=== PATIENT | male | born 1965 | race Two or more races ===

== ENCOUNTER 2021-11-06 07:44 | Inpatient (IN) | payer OTHER ==
[~2021-11-06] VITALS: Ht 167.6 cm; Wt 101.6 kg
[2021-11-06] VITALS (14 sets, daily range): BP systolic 136–180; BP diastolic 45–93
[2021-11-06] MEDS ORDERED: MIDAZOLAM HCL/PF 5 MG/5 ML VIAL. NS ONE (07:45)
--- NOTE | 2021-11-06 07:58 | EKG ---
[facility] [address] [place] [address] Test Date: 2021-11-06 Test Time: 07:41:37 Pat Name: RENNY WHITE Department: Room: Gender: M [employer]: : [id number] Requested By: SULMA BARRAGAN Order Number: [id number] Reading MD: Measurements Intervals [place] Rate: 160 P: [place]: QRS: 14 QRSD: 86 T: 71 QT: 312 QTc: 511 Interpretive Statements IRREGULAR RHYTHM, NO P-WAVE FOUND VENTRICULAR PREMATURE COMPLEX(ES) ABNORMAL ECG RI6.02 Compared to ECG 11/05/2021 20:55:52 Sinus tachycardia no longer present Atrial abnormality no longer present T-wave abnormality no longer present Possible ischemia no longer present
[2021-11-06 08:05] LABS: BASO % 1 % (0-3); EOS # 0.1 x10^3/uL (0.0-0.7); EOS % 1 % (0-3); HEMATOCRIT 42.2 % (39.0-53.0); HEMOGLOBIN 14.4 g/dL (13.0-17.5); LYMPH # 2.1 x10^3/uL (1.0-4.8); LYMPH % 25 % (24-48); MEAN CORPUSCULAR HEMOGLOBIN 28 pg (25-35); MEAN CORPUSCULAR HGB CONC 34 g/dL (31-37); MEAN CORPUSCULAR VOLUME 82 fL (79-100); MONO # 0.5 x10^3/uL (0.0-1.1); MONO % 6 % (0-9); NEUT # 5.5 x10^3/uL (1.8-7.7); NEUT % 66 % (31-73); PLATELET COUNT 290 x10^3/uL (140-400); RED BLOOD COUNT 5.14 x10^6/uL (4.30-5.70); WHITE BLOOD COUNT 8.2 x10^3/uL (4.0-11.0)
[2021-11-06 08:18] LABS: PROTHROMBIN TIME PATIENT 13.5 SEC (11.7-14.0)
[2021-11-06 08:19] LABS: CALCIUM 8.8 mg/dL (8.5-10.1); GFR 77.9; POTASSIUM 3.5 mmol/L (3.5-5.1)
[2021-11-06 08:25] LABS: ALBUMIN 3.6 g/dL (3.4-5.0); ALBUMIN/GLOBULIN RATIO 0.9 (1.0-1.7); TOTAL BILIRUBIN 0.3 mg/dL (0.2-1.0); TOTAL PROTEIN 7.4 g/dL (6.4-8.2)
--- NOTE | 2021-11-06 08:25 | RAD ---
EXAMINATION: XR CHEST 1V CLINICAL HISTORY: Chest pain. EXAM DATE/TIME: 11/06/2021 8:10 AM COMPARISON: None FINDINGS: Lines, Tubes, and Devices: None. Cardiomediastinal Silhouette: Prominent cardiac silhouette. Lungs and Pleura: Ill-defined hazy opacity in the mid to lower lung zones. Mild interstitial opacitie s and indistinct bilateral perihilar pulmonary vascular margins. No definite pleural effusion. Bones and Soft Tissues: Degenerative changes in the thoracic spine. IMPRESSION: Pulmonary edema and enlarged cardiac silhouette, correlate for volume overload. Electronically signed by: Cristiano Lora DO (11/06/2021 8:23 AM) [id number]
[2021-11-06 08:27] LABS: D-DIMER 0.85 ug/mlFEU (0.00-0.50)
--- NOTE | 2021-11-06 08:28 | PHYS DOC ---
Past Medical History Past Surgical History: No Surgical History Smoking Status: Never Smoker Alcohol Use: None General Adult EDM: Chief Complaint: CHEST PAIN HPI: HPI: Patient is a 56 year old male with a history of insulin-dependent diabetes hyperlipidemia hypertension and strong family heart disease presents to the ER with chest pain. Patient was brought in by medics found in SVT with a heart rate of 180. Patient reports crushing chest pain that started 1 hour prior to arrival while at work. 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 Patient denies smoking. States that the chest pain radiates into his neck and left shoulder. Denies any diaphoresis denies any nausea or vomiting. Denies any shortness of breath Review of Systems: Review of Systems: Constitutional: Denies fever or chills. [] Eyes: Denies change in visual acuity. [] HENT: Denies nasal congestion or sore throat. [] Respiratory: Denies cough or shortness of breath. [] Cardiovascular: Chest pain GI: Denies abdominal pain, nausea, vomiting, bloody stools or diarrhea. [] : Denies dysuria. [] Musculoskeletal: Denies back pain or joint pain. [] Integument: Denies rash. [] Neurologic: Denies headache, focal weakness or sensory changes. [] Endocrine: Denies polyuria or polydipsia. [] Lymphatic: Denies swollen glands. [] Psychiatric: Denies depression or anxiety. [] Heart Score: C/O Chest Pain: Yes HEART Score for Chest Pain: HEART Score for Chest Pain Response (Comments) Value History Moderately Suspicious 1 ECG Nonspecific Repolarizatio 1 Age >45 - < 65 1 Risk Factors >3 Risk Factors or Hx CAD 2 Troponin >3 x Normal Limit 2 Total 7 Risk Factors: Risk Factors: DM, Current or recent (<one month) smoker, HTN, HLP, family history of CAD, obesity. Risk Scores: Score 0 - 3: 2.5% MACE over next 6 weeks - Discharge Home Score 4 - 6: 20.3% MACE over next 6 weeks - Admit for Clinical Observation Score 7 - 10: 72.7% MACE over next 6 weeks - Early Invasive Strategies Current Medications: Current Medications Medications (Trade) Dose Ordered Sig/Kd Start Time Stop Time Status Last Admin Dose Admin Amiodarone HCl 450 mg/Dextrose 259 ml @ 0 mls/hr CONT PRN 11/06/21 08:30 4/22/22 08:19 UNV Digoxin (Lanoxin) 500 mcg 1X ONCE 11/06/21 08:30 11/06/21 08:31 UNV Diltiazem HCl (Cardizem Iv Push) 10 mg 1X ONCE 11/06/21 08:15 11/06/21 08:16 UNV Midazolam HCl (Versed) 2 mg 1X ONCE 11/06/21 07:45 11/06/21 07:46 UNV Physical Exam: PE: Constitutional: Well developed, well nourished, ill-appearing HENT: Normocephalic, atraumatic, bilateral external ears normal, oropharynx moist, no oral exudates, nose normal. [] Eyes: PERRLA, EOMI, conjunctiva normal, no discharge. [] Neck: Normal range of motion, no tenderness, supple, no stridor. [] Cardiovascular: Irregular and tachycardic Lungs & Thorax: Bilateral breath sounds clear to auscultation [] Abdomen: Bowel sounds normal, soft, no tenderness, no masses, no pulsatile masses. [] Skin: Damp cool skin. Normal color Back: No tenderness, no CVA tenderness. [] Extremities: No tenderness, no cyanosis, no clubbing, ROM intact, no edema. [] Neurologic: Alert and oriented X 3, normal motor function, normal sensory function, no focal deficits noted. [] Psychologic: Affect normal, judgement normal, mood normal. [] Current Patient Data: Labs: Laboratory Tests Test 11/06/21 07:50 11/06/21 07:59 White Blood Count 8.2 x10^3/uL (4.0-11.0) Red Blood Count 5.14 x10^6/uL (4.30-5.70) Hemoglobin 14.4 g/dL (13.0-17.5) Hematocrit 42.2 % (39.0-53.0) Mean Corpuscular Volume 82 fL (79-100) Mean Corpuscular Hemoglobin 28 pg (25-35) Mean Corpuscular Hemoglobin Concent 34 g/dL (31-37) Red Cell Distribution Width 15.0 % (11.5-14.5) H Platelet Count 290 x10^3/uL (140-400) Neutrophils (%) (Auto) 66 % (31-73) Lymphocytes (%) (Auto) 25 % (24-48) Monocytes (%) (Auto) 6 % (0-9) Eosinophils (%) (Auto) 1 % (0-3) Basophils (%) (Auto) 1 % (0-3) Neutrophils # (Auto) 5.5 x10^3/uL (1.8-7.7) Lymphocytes # (Auto) 2.1 x10^3/uL (1.0-4.8) Monocytes # (Auto) 0.5 x10^3/uL (0.0-1.1) Eosinophils # (Auto) 0.1 x10^3/uL (0.0-0.7) Basophils # (Auto) 0.0 x10^3/uL (0.0-0.2) Prothrombin Time 13.5 SEC (11.7-14.0) Prothrombin Time INR 1.1 (0.8-1.1) D-Dimer (Kaykay) 0.85 ug/mlFEU (0.00-0.50) H Sodium Level 138 mmol/L (136-145) Potassium Level 3.5 mmol/L (3.5-5.1) Chloride Level 101 mmol/L (98-107) Carbon Dioxide Level 27 mmol/L (21-32) Anion Gap 10 (6-14) Blood Urea Nitrogen 20 mg/dL (8-26) Creatinine 1.0 mg/dL (0.7-1.3) Estimated GFR (Cockcroft-Gault) 77.9 BUN/Creatinine Ratio 20 (6-20) Glucose Level 297 mg/dL (70-99) H Calcium Level 8.8 mg/dL (8.5-10.1) Total Bilirubin Pending Aspartate Amino Transferase (AST) Pending Alanine Aminotransferase (ALT) Pending Alkaline Phosphatase Pending Total Protein Pending Albumin Pending Albumin/Globulin Ratio Pending Glucose (Fingerstick) 297 mg/dL (70-99) H Laboratory Tests 11/06/21 07:50 Laboratory Tests 11/06/21 07:50 Vital Signs: Vital Signs Date Time Temp Pulse Resp B/P (MAP) Pulse Ox O2 Delivery O2 Flow Rate FiO2 11/06/21 07:49 97.0 170 16 147/83 (104) 93 Nasal Cannula 6.0 97.0 EKG: EKG: Initial EKG demonstrates a flutter with an approximate heart rate of 150. EKG does not demonstrate any ischemic signs. [] Radiology/Procedures: Radiology/Procedures: [] IMPRESSION: Pulmonary edema and enlarged cardiac silhouette, correlate for volume overload. Course & Med Decision Making: Course & Med Decision Making Pertinent Labs and Imaging studies reviewed. (See chart for details) [] Patient received 2 doses of adenosine in the field which did not convert the patient. Patient was having crushing chest pain and we have decided to attempt cardioverting. Patient was given 2 shocks which initially improved heart rate but patient returned back to an irregular rhythm. Patient was given 2 dose of Cardizem which did not affect the heart rate but did affect blood pressure. Pat ient was still having chest pain at this time interventional cardiology was called who came to see the patient at bedside recommended amnio drip as well as digoxin bolus. Patient will be started on IV heparin and be taken to [facility] later today. Critical care time was [address] RENÉE Nash Disclaimer: Charity Disclaimer: This electronic medical record was generated, in whole or in part, using a voice recognition dictation system. SULMA BARRAGAN DO Nov 06, 2021 08:28
[2021-11-06] MEDS ORDERED: DIGOXIN IV 500 MCG/2 ML AMPUL. IV ONE (08:30)
--- NOTE | 2021-11-06 08:40 | PDOC2 ---
CONSULT Date of Consult Date of Consult DATE: 11/06/21 TIME: 08:40 Reason for Consult Reason for Consult: Chest pain, arrhythmia Referring Physician Referring Physician: Dr. Rosario Identification/Chief Complaint Chief Complaint Chest pain Source Source: Chart review, Patient History of Present Illness Reason for Visit: 56 y/o male kennedy, without any previous cardiac history was apparently at work an hour prior to presentation when he started having crushing retrosternal chest pain 10/10 severity associated with dyspnea, diaphoresis and dizziness. He was found to be in atrial fibrillation with RVR. Since he was hemodynamically unstable, he was cardioverted twice without any success. We then started him on amiodarone drip and gave digoxin for rate control since BP was marginal. He subsequently converted to sinus rhythm and is presently chest pain free. He denied any orthopnea/PND or syncope. Past Medical History Past Medical History HTN DM-2 Past Surgical History Past Surgical History: No pertinent history Family History Family History: Diabetes, Heart Disease Social History Social History Patient is a non smoker and non drinker and denied any drug abuse Current Medications Current Medications Current Medications Midazolam HCl (Versed) 2 mg 1X ONCE NS ; Start 11/06/21 at 07:45; Stop 11/06/21 at 08:34; Status DC Diltiazem HCl (Cardizem Iv Push) 10 mg 1X ONCE IVP ; Start 11/06/21 at 08:15; Stop 11/06/21 at 08:34; Status DC Diltiazem HCl (Cardizem Iv Push) 10 mg 1X ONCE IVP ; Start 11/06/21 at 08:15; Stop 11/06/21 at 08:34; Status DC Amiodarone HCl 450 mg/Dextrose 259 ml @ 0 mls/hr CONT PRN IV SEE I/O RECORD; Start 11/06/21 at 08:30; Stop 11/07/21 at 08:19 Digoxin (Lanoxin) 500 mcg 1X ONCE IV ; Start 11/06/21 at 08:30; Stop 11/06/21 at 08:34; Status DC Heparin Sodium/ Dextrose 250 ml @ 12.48 mls/ hr CONT PRN IV PER PROTOCOL; Start 11/06/21 at 08:30 Heparin Sodium (Porcine) (Heparin Sodium) 2,600 unit PRN Q6HRS PRN IV FOR UFH LEVEL LESS THAN 0.2; Start 11/06/21 at 08:30 Allergies Allergies: Coded Allergies: No Known Drug Allergies (Unverified , 11/06/21) ROS PSYCHOLOGICAL ROS: No: Hallucinations Eyes: No Loss of vision HEENT: No: Epistaxis Respiratory: YES: Shortness of breath; No: Hemoptysis Cardiovascular: yes Chest Pain Gastrointestinal: No Vomiting Genitourinary: No Hematuria Neurological: Yes Dizziness; No Seizures Skin: No Rash Physical Exam General: Alert, mild distress HEENT: Atraumatic Lungs: Clear to auscultation Heart: Regular rate, No murmurs, Other Abdomen: Soft Extremities: No edema Neuro: Normal speech Psych/Mental Status: Mood NL Vitals VITALS Vital Signs Date Time Temp Pulse Resp B/P (MAP) Pulse Ox O2 Delivery O2 Flow Rate FiO2 11/06/21 07:49 97.0 170 16 147/83 (104) 93 Nasal Cannula 6.0 97.0 Labs Labs Laboratory Tests Test 11/06/21 07:50 11/06/21 07:59 White Blood Count 8.2 x10^3/uL (4.0-11.0) Red Blood Count 5.14 x10^6/uL (4.30-5.70) Hemoglobin 14.4 g/dL (13.0-17.5) Hematocrit 42.2 % (39.0-53.0) Mean Corpuscular Volume 82 fL (79-100) Mean Corpuscular Hemoglobin 28 pg (25-35) Mean Corpuscular Hemoglobin Concent 34 g/dL (31-37) Red Cell Distribution Width 15.0 % (11.5-14.5) Platelet Count 290 x10^3/uL (140-400) Neutrophils (%) (Auto) 66 % (31-73) Lymphocytes (%) (Auto) 25 % (24-48) Monocytes (%) (Auto) 6 % (0-9) Eosinophils (%) (Auto) 1 % (0-3) Basophils (%) (Auto) 1 % (0-3) Neutrophils # (Auto) 5.5 x10^3/uL (1.8-7.7) Lymphocytes # (Auto) 2.1 x10^3/uL (1.0-4.8) Monocytes # (Auto) 0.5 x10^3/uL (0.0-1.1) Eosinophils # (Auto) 0.1 x10^3/uL (0.0-0.7) Basophils # (Auto) 0.0 x10^3/uL (0.0-0.2) Prothrombin Time 13.5 SEC (11.7-14.0) Prothromb Time International Ratio 1.1 (0.8-1.1) D-Dimer (Kaykay) 0.85 ug/mlFEU (0.00-0.50) Sodium Level 138 mmol/L (136-145) Potassium Level 3.5 mmol/L (3.5-5.1) Chloride Level 101 mmol/L (98-107) Carbon Dioxide Level 27 mmol/L (21-32) Anion Gap 10 (6-14) Blood Urea Nitrogen 20 mg/dL (8-26) Creatinine 1.0 mg/dL (0.7-1.3) Estimated GFR (Cockcroft-Gault) 77.9 BUN/Creatinine Ratio 20 (6-20) Glucose Level 297 mg/dL (70-99) Calcium Level 8.8 mg/dL (8.5-10.1) Troponin I High Sensitivity 148 ng/L (4-75) GJ-Uqm-K-Type Natriuretic Peptide 179 pg/mL (0-124) Thyroid Stimulating Hormone (TSH) 1.137 uIU/mL (0.358-3.74) Glucose (Fingerstick) 297 mg/dL (70-99) Laboratory Tests Test 11/06/21 07:50 11/06/21 07:59 White Blood Count 8.2 x10^3/uL (4.0-11.0) Red Blood Count 5.14 x10^6/uL (4.30-5.70) Hemoglobin 14.4 g/dL (13.0-17.5) Hematocrit 42.2 % (39.0-53.0) Mean Corpuscular Volume 82 fL (79-100) Mean Corpuscular Hemoglobin 28 pg (25-35) Mean Corpuscular Hemoglobin Concent 34 g/dL (31-37) Red Cell Distribution Width 15.0 % (11.5-14.5) Platelet Count 290 x10^3/uL (140-400) Neutrophils (%) (Auto) 66 % (31-73) Lymphocytes (%) (Auto) 25 % (24-48) Monocytes (%) (Auto) 6 % (0-9) Eosinophils (%) (Auto) 1 % (0-3) Basophils (%) (Auto) 1 % (0-3) Neutrophils # (Auto) 5.5 x10^3/uL (1.8-7.7) Lymphocytes # (Auto) 2.1 x10^3/uL (1.0-4.8) Monocytes # (Auto) 0.5 x10^3/uL (0.0-1.1) Eosinophils # (Auto) 0.1 x10^3/uL (0.0-0.7) Basophils # (Auto) 0.0 x10^3/uL (0.0-0.2) Prothrombin Time 13.5 SEC (11.7-14.0) Prothromb Time International Ratio 1.1 (0.8-1.1) D-Dimer (Kaykay) 0.85 ug/mlFEU (0.00-0.50) Sodium Level 138 mmol/L (136-145) Potassium Level 3.5 mmol/L (3.5-5.1) Chloride Level 101 mmol/L (98-107) Carbon Dioxide Level 27 mmol/L (21-32) Anion Gap 10 (6-14) Blood Urea Nitrogen 20 mg/dL (8-26) Creatinine 1.0 mg/dL (0.7-1.3) Estimated GFR (Cockcroft-Gault) 77.9 BUN/Creatinine Ratio 20 (6-20) Glucose Level 297 mg/dL (70-99) Calcium Level 8.8 mg/dL (8.5-10.1) Troponin I High Sensitivity 148 ng/L (4-75) CG-Gwb-W-Type Natriuretic Peptide 179 pg/mL (0-124) Thyroid Stimulating Hormone (TSH) 1.137 uIU/mL (0.358-3.74) Glucose (Fingerstick) 297 mg/dL (70-99) Assessment/Plan Assessment/Plan 1. Atrial fibrillation with RVR: newly diagnosed, s/p cardioversion twice without any success with subsequent conversion to SR after starting amiodarone infusion. Continue heparin infusion per protocol 2. NSTEMI: EKG without acute changes. Plan for cardiac cath and possible PCI tomorrow - risks and benefits explained and he is agreeable 3. Acute combined diastolic and systolic HF: precipitated by RVR, better compensated. 2D echo showed EF 40%. 4. HTN: resume home meds 5. DM-2: treat per IM Total critical care time spent evaluating and managing patient 40 minutes WOODY RAY MD Nov 06, 2021 08:40
[2021-11-06] MEDS: AMIODARONE 450 MG in IV DEXTROSE 5% 250 ML IV PRN ×2 (08:51→14:41)
[2021-11-06] MEDS: HEPARIN for IV BOLUS 10,000 UNIT/10 ML VIAL. IV PRN ×2 (09:02→17:39)
[2021-11-06] MEDS: HEPARIN 25,000UTS/250ML PREMIX 250 ML IV PRN (09:04)
[2021-11-06] MEDS ORDERED: ASPIRIN 325 MG TABLET PO ONE (10:00)
[2021-11-06 10:04] LABS: CHOLESTEROL/HDL RATIO 7.5
[2021-11-06] MEDS ORDERED: METF10007 PO (11:38)
[2021-11-06] MEDS ORDERED: CHLO25TA10 PO (11:38)
[2021-11-06] MEDS ORDERED: LOSA100T14 PO (11:38)
[2021-11-06] MEDS ORDERED: DILT360C PO (11:38)
[2021-11-06] MEDS ORDERED: METO50TA6 PO (11:38)
[2021-11-06] MEDS ORDERED: INSU100V5 IJ (11:38)
[2021-11-06] MEDS ORDERED: TAMS0.4C97 PO (11:38)
[2021-11-06] MEDS ORDERED: INSU100I13 SQ (11:38)
[2021-11-06] MEDS ORDERED: ASPI-886 PO (11:38)
--- NOTE | 2021-11-06 11:55 | PDOC1 ---
History and Physical Date of Service: DOS: DATE: 11/06/21 TIME: 11:49 Chief Complaint: Chief Complain: Chest pain. History of Present Illness: HPI: 56-year-old male with past medical history of diabetes mellitus insulin- dependent, hypertension, dyslipidemia, morbid obesity who comes in with pressure-like chest pain that started this morning while he was at work. Patient was sitting and making sandwiches when he felt chest pressure in his substernal region that did not radiate but he endorses neck discomfort and arm discomfort. Brought in by EMS and found to be in rapid heart rate of 180. He was started on amiodarone, digoxin drip by cardiology in the emergency department. Heparin drip was also started for plan for heart cath as his troponin was elevated at 150. Never had chest pain like this before. Denies any fevers, shortness of breath, diaphoresis, nausea vomiting, abdominal pain, diarrhea or sick contacts or recent travel or immobility. Past Medical/Surgical History: PMH/PSH: Past medical history of diabetes mellitus, hypertension, dyslipidemia Allergies: Allergies: Coded Allergies: No Known Drug Allergies (Unverified , 11/06/21) Family History: Family History: Reviewed with no relative findings in the chart Social History: Social History: Denies alcohol, tobacco or drug abuse. Current Medications: Current Medications Current Medications Midazolam HCl (Versed) 2 mg 1X ONCE NS Last administered on 11/06/21at 07:45; Start 11/06/21 at 07:45; Stop 11/06/21 at 08:34; Status DC Diltiazem HCl (Cardizem Iv Push) 10 mg 1X ONCE IVP Last administered on 11/06/21at 08:54; Start 11/06/21 at 08:15; Stop 11/06/21 at 08:34; Status DC Diltiazem HCl (Cardizem Iv Push) 10 mg 1X ONCE IVP Last administered on 11/06/21at 07:50; Start 11/06/21 at 08:15; Stop 11/06/21 at 08:34; Status DC Amiodarone HCl 450 mg/Dextrose 259 ml @ 0 mls/hr CONT PRN IV SEE I/O RECORD Last administered on 11/06/21at 08:51; Start 11/06/21 at 08:30; Stop 11/07/21 at 08:19 Digoxin (Lanoxin) 500 mcg 1X ONCE IV Last administered on 11/06/21at 08:57; Start 11/06/21 at 08:30; Stop 11/06/21 at 08:34; Status DC Heparin Sodium/ Dextrose 250 ml @ 12.48 mls/ hr CONT PRN IV PER PROTOCOL Last administered on 11/06/21at 09:04; Start 11/06/21 at 08:30 Heparin Sodium (Porcine) (Heparin Sodium) 2,600 unit PRN Q6HRS PRN IV FOR UFH LEVEL LESS THAN 0.2 Last administered on 11/06/21at 09:02; Start 11/06/21 at 08:30 Aspirin (Saida Aspirin) 325 mg 1X ONCE PO ; Start 11/06/21 at 10:00; Stop 11/06/21 at 10:01; Status DC Active Scripts Active Reported Humulin R (Insulin Regular, Human) 100 Unit/1 Ml Vial 0 IJ QIDACHS 150-200 4 UNITS 201-250 6 UNITS 251-300 8 UNITS 301-400 10 UNITS >= 401 12 UNITS AND CALL PHYSICIAN Kacie Calderon (Insulin Glargine,Hum.rec.anlog) 100 Unit/1 Ml Insuln.pen 90 Unit SQ DAILY Metformin Hcl 1,000 Mg Tablet 1,000 Mg PO BIDWMEALS Metoprolol Tartrate 50 Mg Tablet 1 Tab PO BID Cardizem Cd (Diltiazem Hcl) 360 Mg Cap.er.24h 1 Cap PO DAILY Aspirin Ec (Aspirin) 81 Mg Tablet.dr 1 Tab PO DAILY Losartan Potassium 100 Mg Tablet 100 Mg PO DAILY Flomax (Tamsulosin Hcl) 0.4 Mg Cap.er.24h 1 Cap PO DAILY Chlorthalidone (Chlorthalidone) 25 Mg Tablet 50 Mg PO DAILY ROS: Review of Systems Review of System REVIEW OF SYSTEMS: GENERAL: Denies weakness SKIN: No bruising, hair changes or rashes. EYES: No blurred, double or loss of vision. NOSE AND THROAT: No history of nosebleeds, hoarseness or sore throat. HEART: Positive for chest pain LUNGS: Denies cough, hemoptysis, wheezing or shortness of breath. GASTROINTESTINAL: Denies changes in appetite, nausea, vomiting, diarrhea or constipation. GENITOURINARY: No history of frequency, urgency, hesitancy or nocturia. NEUROLOGIC: Denies history of numbness, tingling, or tremor. PSYCHIATRIC: No history of panic, anxiety or depression. ENDOCRINE: No history of heat or cold intolerance, polyuria or polydipsia. EXTREMITIES: Denies joint pain, pain on walking or stiffness. Physical Exam: Vital Signs: Vital Signs Date Time Temp Pulse Resp B/P (MAP) Pulse Ox O2 Delivery O2 Flow Rate FiO2 11/06/21 10:04 97.0 78 20 144/78 (100) 95 Nasal Cannula 2.0 97.0 Physcial Exam: General: Well developed, well nourished, no acute distress, well appearing HEENT: Pupils equally round and reactive to light, EOMI, no discharge, normal conjunctiva Neck: Supple, no nuchal rigidity, no JVD, trachea midline, no tenderness Cardiac: RRR, no murmurs, no gallops, no rubs Chest/Lungs: CTAB, no wheeze, no rhonchi, no crackles Abdomen: soft, non-distended, no guarding, no peritoneal signs, non-tender Back: No tenderness Extremities: no edema, pulses intact, non-tender,capillary refill <3 sec bilateral upper and lower extremities, Neuro: Alert and oriented x 4, no focal deficits, normal speech Labs: Labs: Laboratory Tests Test 11/06/21 07:50 11/06/21 07:59 11/06/21 10:22 11/06/21 11:03 White Blood Count 8.2 x10^3/uL (4.0-11.0) Red Blood Count 5.14 x10^6/uL (4.30-5.70) Hemoglobin 14.4 g/dL (13.0-17.5) Hematocrit 42.2 % (39.0-53.0) Mean Corpuscular Volume 82 fL (79-100) Mean Corpuscular Hemoglobin 28 pg (25-35) Mean Corpuscular Hemoglobin Concent 34 g/dL (31-37) Red Cell Distribution Width 15.0 % (11.5-14.5) Platelet Count 290 x10^3/uL (140-400) Neutrophils (%) (Auto) 66 % (31-73) Lymphocytes (%) (Auto) 25 % (24-48) Monocytes (%) (Auto) 6 % (0-9) Eosinophils (%) (Auto) 1 % (0-3) Basophils (%) (Auto) 1 % (0-3) Neutrophils # (Auto) 5.5 x10^3/uL (1.8-7.7) Lymphocytes # (Auto) 2.1 x10^3/uL (1.0-4.8) Monocytes # (Auto) 0.5 x10^3/uL (0.0-1.1) Eosinophils # (Auto) 0.1 x10^3/uL (0.0-0.7) Basophils # (Auto) 0.0 x10^3/uL (0.0-0.2) Prothrombin Time 13.5 SEC (11.7-14.0) Prothromb Time International Ratio 1.1 (0.8-1.1) D-Dimer (Kaykay) 0.85 ug/mlFEU (0.00-0.50) Sodium Level 138 mmol/L (136-145) Potassium Level 3.5 mmol/L (3.5-5.1) Chloride Level 101 mmol/L (98-107) Carbon Dioxide Level 27 mmol/L (21-32) Anion Gap 10 (6-14) Blood Urea Nitrogen 20 mg/dL (8-26) Creatinine 1.0 mg/dL (0.7-1.3) Estimated GFR (Cockcroft-Gault) 77.9 BUN/Creatinine Ratio 20 (6-20) Glucose Level 297 mg/dL (70-99) Calcium Level 8.8 mg/dL (8.5-10.1) Total Bilirubin 0.3 mg/dL (0.2-1.0) Aspartate Amino Transf (AST/SGOT) 21 U/L (15-37) Alanine Aminotransferase (ALT/SGPT) 28 U/L (16-63) Alkaline Phosphatase 136 U/L (46-116) Troponin I High Sensitivity 148 ng/L (4-75) 02404 ng/L (4-75) FS-Oiy-M-Type Natriuretic Peptide 179 pg/mL (0-124) Total Protein 7.4 g/dL (6.4-8.2) Albumin 3.6 g/dL (3.4-5.0) Albumin/Globulin Ratio 0.9 (1.0-1.7) Triglycerides Level 443 mg/dL (0-150) Cholesterol Level 195 mg/dL (0-200) LDL Cholesterol, Calculated 80 mg/dL (0-100) VLDL Cholesterol, Calculated 89 mg/dL (0-40) Non-HDL Cholesterol Calculated 169 mg/dL (0-129) HDL Cholesterol 26 mg/dL (40-60) Cholesterol/HDL Ratio 7.5 Thyroid Stimulating Hormone (TSH) 1.137 uIU/mL (0.358-3.74) Glucose (Fingerstick) 297 mg/dL (70-99) SARS-CoV-2 Antigen (Rapid) Negative (NEGATIVE) Laboratory Tests Test 11/06/21 07:50 11/06/21 07:59 11/06/21 10:22 11/06/21 11:03 White Blood Count 8.2 x10^3/uL (4.0-11.0) Red Blood Count 5.14 x10^6/uL (4.30-5.70) Hemoglobin 14.4 g/dL (13.0-17.5) Hematocrit 42.2 % (39.0-53.0) Mean Corpuscular Volume 82 fL (79-100) Mean Corpuscular Hemoglobin 28 pg (25-35) Mean Corpuscular Hemoglobin Concent 34 g/dL (31-37) Red Cell Distribution Width 15.0 % (11.5-14.5) Platelet Count 290 x10^3/uL (140-400) Neutrophils (%) (Auto) 66 % (31-73) Lymphocytes (%) (Auto) 25 % (24-48) Monocytes (%) (Auto) 6 % (0-9) Eosinophils (%) (Auto) 1 % (0-3) Basophils (%) (Auto) 1 % (0-3) Neutrophils # (Auto) 5.5 x10^3/uL (1.8-7.7) Lymphocytes # (Auto) 2.1 x10^3/uL (1.0-4.8) Monocytes # (Auto) 0.5 x10^3/uL (0.0-1.1) Eosinophils # (Auto) 0.1 x10^3/uL (0.0-0.7) Basophils # (Auto) 0.0 x10^3/uL (0.0-0.2) Prothrombin Time 13.5 SEC (11.7-14.0) Prothromb Time International Ratio 1.1 (0.8-1.1) D-Dimer (Kaykay) 0.85 ug/mlFEU (0.00-0.50) Sodium Level 138 mmol/L (136-145) Potassium Level 3.5 mmol/L (3.5-5.1) Chloride Level 101 mmol/L (98-107) Carbon Dioxide Level 27 mmol/L (21-32) Anion Gap 10 (6-14) Blood Urea Nitrogen 20 mg/dL (8-26) Creatinine 1.0 mg/dL (0.7-1.3) Estimated GFR (Cockcroft-Gault) 77.9 BUN/Creatinine Ratio 20 (6-20) Glucose Level 297 mg/dL (70-99) Calcium Level 8.8 mg/dL (8.5-10.1) Total Bilirubin 0.3 mg/dL (0.2-1.0) Aspartate Amino Transf (AST/SGOT) 21 U/L (15-37) Alanine Aminotransferase (ALT/SGPT) 28 U/L (16-63) Alkaline Phosphatase 136 U/L (46-116) Troponin I High Sensitivity 148 ng/L (4-75) 85737 ng/L (4-75) CO-Fup-W-Type Natriuretic Peptide 179 pg/mL (0-124) Total Protein 7.4 g/dL (6.4-8.2) Albumin 3.6 g/dL (3.4-5.0) Albumin/Globulin Ratio 0.9 (1.0-1.7) Triglycerides Level 443 mg/dL (0-150) Cholesterol Level 195 mg/dL (0-200) LDL Cholesterol, Calculated 80 mg/dL (0-100) VLDL Cholesterol, Calculated 89 mg/dL (0-40) Non-HDL Cholesterol Calculated 169 mg/dL (0-129) HDL Cholesterol 26 mg/dL (40-60) Cholesterol/HDL Ratio 7.5 Thyroid Stimulating Hormone (TSH) 1.137 uIU/mL (0.358-3.74) Glucose (Fingerstick) 297 mg/dL (70-99) SARS-CoV-2 Antigen (Rapid) Negative (NEGATIVE) Images: Images PROCEDURE: PORTABLE CHEST 1V EXAMINATION: XR CHEST 1V CLINICAL HISTORY: Chest pain. EXAM DATE/TIME: 11/06/2021 8:10 AM COMPARISON: None FINDINGS: Lines, Tubes, and Devices: None. Cardiomediastinal Silhouette: Prominent cardiac silhouette. Lungs and Pleura: Ill-defined hazy opacity in the mid to lower lung zones. Mild interstitial opacities and indistinct bilateral perihilar pulmonary vascular margins. No definite pleural effusion. Bones and Soft Tissues: Degenerative changes in the thoracic spine. IMPRESSION: Pulmonary edema and enlarged cardiac silhouette, correlate for volume overload. Assessment/Plan Assessment/Plan Chest pain concerning for NSTEMI History of diabetes mellitus type 2 History of hypertension History of dyslipidemia Obesity class II Heart score of 8 EKG showing Troponin Continue aspirin, consider Plavix if intermediate risk will defer this to cardiology Cardiology consulted for predischarge stress testing or left heart cath Continue nitroglycerin as needed for pain Continue beta-mathew if blood pressures allow Continue high intensity statins IV morphine as needed Continue heparin drip Maintain O2 sats between 88 to 95% Trend troponins Repeat EKG in the a.m. Continue telemetry monitoring Monitor for electrolyte abnormalities Avoid NSAIDs Justifications for Admission Other Justification PHI CHINCHILLA MD Nov 06, 2021 11:55
[2021-11-06] MEDS ORDERED: SENNOSIDES 8.6 MG TABLET PO PRN (12:00)
[2021-11-06] MEDS ORDERED: oxyCODONE/APAP 5/325 1 TAB TABLET PO PRN ×2 (12:00)
[2021-11-06] MEDS ORDERED: diphenhydrAMINE 50 MG/ML VIAL IVP PRN (12:00)
[2021-11-06] MEDS ORDERED: ONDANSETRON PF 4 MG/2 ML VIAL. IVP PRN (12:00)
[2021-11-06] MEDS ORDERED: PROCHLORPERAZINE 10 MG/2 ML VIAL. IV PRN (12:00)
[2021-11-06] MEDS ORDERED: DOCUSATE SODIUM 100 MG CAPSULE. PO PRN (12:00)
[2021-11-06] MEDS ORDERED: ZOLPIDEM 5 MG TABLET. PO PRN (12:00)
[2021-11-06] MEDS ORDERED: diphenhydrAMINE HCL 25 MG CAPSULE PO PRN ×2 (12:00)
[2021-11-06] MEDS ORDERED: ACETAMINOPHEN 325 MG TABLET. PO PRN (12:00)
[2021-11-06] MEDS ORDERED: MORPHINE SULFATE 2 MG/ML INJ. IV PRN (12:00)
[2021-11-06] MEDS ORDERED: MORPHINE SULFATE 2 MG/ML INJ. IVP PRN (12:00)
[2021-11-06] MEDS ORDERED: DEXTROSE 50% 25 GM / 50ML DISP.SYRIN. IV PRN ×2 (12:00)
[2021-11-06] MEDS ORDERED: LORazepam 0.5 MG TABLET PO PRN (12:00)
--- NOTE | 2021-11-06 12:18 | EKG ---
[facility] [address] [place] [address] Test Date: 2021-11-06 Test Time: 12:14:59 Pat Name: RENNY WHITE Department: Room: 104 1 Gender: M Distillery Worker: CAMILLE : 1965 Requested By: WOODY RAY Order Number: [id number] Reading MD: Measurements Intervals [place] Rate: 72 P: 41 [place]: 152 QRS: 27 QRSD: 94 T: 54 QT: 378 QTc: 415 Interpretive Statements SINUS RHYTHM QRS(T) CONTOUR ABNORMALITY CONSIDER ANTEROSEPTAL INFARCT CONSIDER INFERIOR MYOCARDIAL DAMAGE POSSIBLY ABNORMAL ECG RI6.02 Compared to ECG 11/06/2021 07:41:37 Myocardial infarct finding now present
[2021-11-06] MEDS: INSULIN LISPRO 300 UNITS/3 ML VIAL. SQ SCH ×3 (12:28→21:32)
[2021-11-06] MEDS: ASPIRIN ENTERIC COATED 81 MG TABLET.DR. PO SCH (14:00)
--- NOTE | 2021-11-06 17:21 | CARD ---
MR#: [id number] Date of Study: 11/06/2021 Ordering Physician: AUSTEN COTTRELL, Referring Physician: AUSTEN COTTRELL, Tech: Monalisa Mccullough [facility].RVT APPROVED REPORT EXAM: Two-dimensional and M-mode echocardiogram with Doppler and color Doppler. Other Information Quality : GoodHR: 71bpm Rhythm : NSR INDICATION Hypertension/HCVD Pulmonary edema, SVT, DM, SMOKER 2D DIMENSIONS RVDd3.3 (2.9-3.5cm)Left Atrium(2D)4.0 (1.6-4.0cm) IVSd1.0 (0.7-1.1cm)Aortic Root(2D)3.0 (2.0-3.7cm) LVDd5.2 (3.9-5.9cm)LVOT Diameter2.4 (1.8-2.4cm) PWd1.0 (0.7-1.1cm)LVDs3.9 (2.5-4.0cm) FS (%) 25.2 %SV65.1 ml Aortic Valve AoV Peak Nas.134.1cm/[place] Peak GR.7.7mmHg LVOT Peak Nas.81.8cm/sAVA (VMAX)2.75cm2 Mitral Valve MV E Qmqpmjeq644.2cm/sMV DECEL [id number] MV A Pcylcqpm57.7cm/sE/A Ratio1.4 Pulmonary Vein S1 Cnhzivfm11.4cm/sD2 Dqftkqjl77.6cm/s PVa [id number] LEFT VENTRICLE The Left Ventricle is borderline dilated. There is normal left ventricular wall thickness. The systol ic function is mildly impaired. LV ejection fraction is estimated at 40%. There is mild global hypoki nesis of the left ventricle. Tissue Doppler imaging reveals abnormal left ventricular diastolic dysfu nction. No left ventricle thrombus noted on this study. There is no ventricular septal defect visuali zed. There is no left ventricular aneurysm. There is no mass noted in the left ventricle. RIGHT VENTRICLE The right ventricle is normal size. There is normal right ventricular wall thickness. The right ventr icular systolic function is normal. ATRIA The left atrium size is normal. The right atrium size is normal. The interatrial septum is intact wit h no evidence for an atrial septal defect or patent foramen ovale as noted on 2-D or Doppler imaging. AORTIC VALVE The aortic valve is normal in structure and function. No aortic regurgitation is present. There is no aortic valvular stenosis. There is no aortic valvular vegetation. MITRAL VALVE The mitral valve is normal in structure and function. There is no evidence of mitral valve prolapse. There is no mitral valve stenosis. Doppler and Color-flow revealed mild mitral regurgitation. TRICUSPID VALVE The tricuspid valve is normal in structure and function. Doppler and Color Flow revealed no tricuspid valve regurgitation noted. There is no tricuspid valve prolapse or vegetation. There is no tricuspid valve stenosis. PULMONIC VALVE The pulmonary valve is normal in structure and function. There is no pulmonic valvular regurgitation. There is no pulmonic valvular stenosis. GREAT VESSELS The aortic root is normal in size. The ascending aorta is normal in size. The pulmonary artery is nor mal. The IVC was not visualized. PERICARDIAL EFFUSION There is no pleural effusion. The pericardium appears normal. Critical Notification Critical Value: No <Conclusion> The Left Ventricle is borderline dilated. The systolic function is mildly impaired. LV ejection fraction is estimated at 40%. There is mild global hypokinesis of the left ventricle. No aortic regurgitation is present. There is no aortic valvular stenosis. Doppler and Color-flow revealed mild mitral regurgitation. Doppler and Color Flow revealed no tricuspid valve regurgitation noted. Signed by : Andrew Garibay MD Electronically Approved : 11/06/2021 17:20:46
[2021-11-06] MEDS: ATORVASTATIN CALCIUM 40 MG TABLET. PO SCH (20:44)
[2021-11-07] VITALS (24 sets, daily range): BP systolic 119–186; BP diastolic 59–103
[2021-11-07] MEDS ORDERED: CALCIUM CHLORIDE 1,000 MG/10 ML DISP.SYRIN IV ONE (01:00)
[2021-11-07] MEDS: HEPARIN 25,000UTS/250ML PREMIX 250 ML IV PRN (01:54)
[2021-11-07] MEDS: hydrALAZINE 20 MG/ML VIAL. IVP PRN ×2 (06:36→16:06)
[2021-11-07 07:25] LABS: CALCIUM 8.5 mg/dL (8.5-10.1); CREATININE 0.7 mg/dL (0.7-1.3); GFR 117.5; MAGNESIUM 1.8 mg/dL (1.8-2.4); PHOSPHORUS 3.1 mg/dL (2.6-4.7)
[2021-11-07] MEDS: AMIODARONE 450 MG in IV DEXTROSE 5% 250 ML IV PRN (07:31)
[2021-11-07] MEDS: ASPIRIN ENTERIC COATED 81 MG TABLET.DR. PO SCH (07:38)
[2021-11-07] MEDS ORDERED: IODIXANOL 320 MG/ML 100 ML VIAL. ONE (07:39)
[2021-11-07] MEDS ORDERED: LIDOCAINE 1% PF 2 ML VIAL. ONE (07:39)
[2021-11-07] MEDS: INSULIN LISPRO 300 UNITS/3 ML VIAL. SQ SCH ×4 (08:00→21:10)
[2021-11-07] MEDS ORDERED: MIDAZOLAM HCL/PF 5 MG/5 ML VIAL. ONE (08:20)
[2021-11-07] MEDS ORDERED: fentaNYL PF VIAL 100 MCG/2 ML VIAL ONE (08:20)
[2021-11-07] MEDS ORDERED: HEPARIN for IV BOLUS 10,000 UNIT/10 ML VIAL. ONE (08:21)
[2021-11-07] MEDS ORDERED: VERAPAMIL 5 MG/2 ML VIAL. ONE (08:21)
[2021-11-07] MEDS ORDERED: NITROGLYCERIN 200 MCG/2 ML SYRINGE FOR CATH/VASC LAB. ONE ×2 (08:21→13:58)
[2021-11-07 08:39] LABS: BASO # 0.1 x10^3/uL (0.0-0.2); BASO % 1 % (0-3); EOS # 0.2 x10^3/uL (0.0-0.7); EOS % 2 % (0-3); HEMATOCRIT 42.9 % (39.0-53.0); HEMOGLOBIN 14.8 g/dL (13.0-17.5); LYMPH # 3.1 x10^3/uL (1.0-4.8); LYMPH % 29 % (24-48); MEAN CORPUSCULAR HEMOGLOBIN 28 pg (25-35); MEAN CORPUSCULAR HGB CONC 35 g/dL (31-37); MEAN CORPUSCULAR VOLUME 82 fL (79-100); MONO # 0.6 x10^3/uL (0.0-1.1); MONO % 6 % (0-9); NEUT # 6.7 x10^3/uL (1.8-7.7); NEUT % 63 % (31-73); PLATELET COUNT 279 x10^3/uL (140-400); RED BLOOD COUNT 5.26 x10^6/uL (4.30-5.70); RED CELL DISTRIBUTION WIDTH 14.4 % (11.5-14.5); WHITE BLOOD COUNT 10.6 x10^3/uL (4.0-11.0)
--- NOTE | 2021-11-07 12:12 | PDOC ---
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, T Vitals/I&O Vitals/I&O: Vital Signs Date Time Temp Pulse Resp B/P (MAP) Pulse Ox O2 Delivery O2 Flow Rate FiO2 11/07/21 12:00 Room Air 11/07/21 11:00 66 18 160/84 (109) 98 2.0 11/07/21 07:00 97.9 97.9 I & O 11/06/21 11/06/21 11/07/21 15:00 23:00 07:00 Intake Total 240 ml 666 ml 200 ml Output Total 825 ml 850 ml 250 ml Balance -585 ml -184 ml -50 ml Physical Exam General: Alert, mild distress Heart: Regular rate, No murmurs, Other Lungs: Clear Abdomen: Soft Extremities: No edema Labs Labs: Laboratory Tests Test 11/06/21 12:26 11/06/21 13:45 11/06/21 13:50 11/06/21 15:38 Glucose (Fingerstick) 260 mg/dL (70-99) NE-Pli-C-Type Natriuretic Peptide 217 pg/mL (0-124) Troponin I High Sensitivity 85726 ng/L (4-75) Heparin Anti-Xa Act, Unfractionated < 0.10 IU/mL (0.30-0.70) Test 11/06/21 17:38 11/06/21 20:43 11/06/21 22:55 11/07/21 06:50 Glucose (Fingerstick) 174 mg/dL (70-99) 234 mg/dL (70-99) Heparin Anti-Xa Act, Unfractionated 0.21 IU/mL (0.30-0.70) 0.26 IU/mL (0.30-0.70) Sodium Level 135 mmol/L (136-145) Potassium Level 4.0 mmol/L (3.5-5.1) Chloride Level 102 mmol/L (98-107) Carbon Dioxide Level 22 mmol/L (21-32) Anion Gap 11 (6-14) Blood Urea Nitrogen 16 mg/dL (8-26) Creatinine 0.7 mg/dL (0.7-1.3) Estimated GFR (Cockcroft-Gault) 117.5 Glucose Level 202 mg/dL (70-99) Calcium Level 8.5 mg/dL (8.5-10.1) Phosphorus Level 3.1 mg/dL (2.6-4.7) Magnesium Level 1.8 mg/dL (1.8-2.4) Test 11/07/21 07:50 White Blood Count 10.6 x10^3/uL (4.0-11.0) Red Blood Count 5.26 x10^6/uL (4.30-5.70) Hemoglobin 14.8 g/dL (13.0-17.5) Hematocrit 42.9 % (39.0-53.0) Mean Corpuscular Volume 82 fL (79-100) Mean Corpuscular Hemoglobin 28 pg (25-35) Mean Corpuscular Hemoglobin Concent 35 g/dL (31-37) Red Cell Distribution Width 14.4 % (11.5-14.5) Platelet Count 279 x10^3/uL (140-400) Neutrophils (%) (Auto) 63 % (31-73) Lymphocytes (%) (Auto) 29 % (24-48) Monocytes (%) (Auto) 6 % (0-9) Eosinophils (%) (Auto) 2 % (0-3) Basophils (%) (Auto) 1 % (0-3) Neutrophils # (Auto) 6.7 x10^3/uL (1.8-7.7) Lymphocytes # (Auto) 3.1 x10^3/uL (1.0-4.8) Monocytes # (Auto) 0.6 x10^3/uL (0.0-1.1) Eosinophils # (Auto) 0.2 x10^3/uL (0.0-0.7) Basophils # (Auto) 0.1 x10^3/uL (0.0-0.2) Assessment and Plan Assessmemt and Plan Problems Medical Problems: (1) Atrial flutter Status: Acute (2) NSTEMI (non-ST elevated myocardial infarction) Status: Acute Comment Review of Relevant I have reviewed the following items georgina (where applicable) has been applied. Medications: Current Medications Medications (Trade) Dose Ordered Sig/Kd Route PRN Reason Start Time Stop Time Status Last Admin Dose Admin Aspirin (Ecotrin) 81 mg [id number] PO 11/06/21 14:00 11/07/21 07:38 Atorvastatin Calcium (Lipitor) 40 mg QHS PO 11/06/21 21:00 11/06/21 20:44 Hydralazine HCl (Apresoline Inj) 10 mg PRN Q4HRS PRN IVP ELEVATED BP, SEE COMMENTS 11/06/21 18:45 11/07/21 06:36 Insulin Human Lispro (HumaLOG) 0-7 UNITS QHS SQ 11/06/21 21:00 11/06/21 21:32 Justifications for Admission Other Justification Chest pain LEILA DOBSON MD Nov 07, 2021 12:12
[2021-11-07 13:21] LABS: BACTERIA,URINE 0 /HPF (0-FEW); RBC,URINE 0 /HPF (0-2); WBC,URINE OCC /HPF (0-4)
[2021-11-07] MEDS ORDERED: BIVALIRUDIN 250 MG VIAL. IVP ONE ×2 (13:39→13:45)
[2021-11-07] MEDS ORDERED: VERAPAMIL 5 MG/2 ML VIAL. IART ONE (13:45)
[2021-11-07] MEDS ORDERED: HEPARIN for IV BOLUS 10,000 UNIT/10 ML VIAL. IART ONE (13:45)
[2021-11-07] MEDS ORDERED: fentaNYL PF VIAL 100 MCG/2 ML VIAL IV ONE (13:45)
[2021-11-07] MEDS ORDERED: IODIXANOL 320 MG/ML 100 ML VIAL. IART ONE (13:45)
[2021-11-07] MEDS ORDERED: MIDAZOLAM HCL/PF 5 MG/5 ML VIAL. IV ONE (13:45)
[2021-11-07] MEDS ORDERED: LIDOCAINE 1% PF 2 ML VIAL. INJ ONE (13:45)
[2021-11-07] MEDS ORDERED: NITROGLYCERIN 200 MCG/2 ML SYRINGE FOR CATH/VASC LAB. IART ONE (13:45)
[2021-11-07] MEDS ORDERED: CONTRAST GIVEN. MC PRN (14:00)
[2021-11-07] MEDS ORDERED: NITROGLYCERIN 200 MCG/2 ML SYRINGE FOR CATH/VASC LAB. ICAR ONE (14:00)
[2021-11-07] MEDS ORDERED: PRASUGREL 10 MG TABLET. PO ONE (14:15)
[2021-11-07] MEDS ORDERED: FUROSEMIDE 100 MG/10 ML VIAL. ONE (14:15)
[2021-11-07] MEDS ORDERED: ASPIRIN 325 MG TABLET PO ONE (14:15)
[2021-11-07] MEDS ORDERED: FUROSEMIDE 100 MG/10 ML VIAL. IVP ONE (14:15)
[2021-11-07] MEDS ORDERED: ASPIRIN 325 MG TABLET ONE (14:16)
[2021-11-07] MEDS ORDERED: PRASUGREL 10 MG TABLET. ONE (14:16)
--- NOTE | 2021-11-07 14:22 | PDOC ---
MODERATE SEDATION ASSESSMENT RISKS/ALTERNATIVES Risks/Alternatives Risks and alternatives of this type of sedation and procedure discussed with: RISK/ALTERNATIVES: Patient H & P ON CHART H & P H & P on chart and reviewed for co-morbid conditions and appropriate labs. H&P ON CHART: Yes STATUS PREG STATUS ASSESSED: N/A MEDS/ALLERGIES REVIEWED Meds/Allergies Reviewed Medications and Allergies including time and route of recently administered narcotics and sedatives. MEDS/ALLERGIES REVIEWED: Yes ASA RATING ASA RATING: II AIRWAY ASSESSMENT Airway Assessment Airway patency, oral function limitations, presence of caps, crowns, dentures, partials, and ability to extend neck assessed. AIRWAY ASSESSMENT: Yes MALLAMPATI SCORE MALLAMPATI SCORE: II PRE-SEDATION ASSESSMENT PRE-SEDATION ASSESSMENT: Yes WOODY RAY MD Nov 07, 2021 14:22
--- NOTE | 2021-11-07 17:30 | NUR ---
Patient transferred to room 674 via wheelchair, personal belongings sent with patient.
--- NOTE | 2021-11-07 19:28 | PDOC ---
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 He underwent successful PCI/SANTA to LAD/LCX. Stop heparin gtt, start eliquis for Atrial fib stroke prophylaxis and possibly DC home tomorrow. Justifications for Admission Other Justification Chest pain WOODY RAY MD Nov 07, 2021 19:28
[2021-11-07] MEDS: ATORVASTATIN CALCIUM 40 MG TABLET. PO SCH (21:05)
[2021-11-07] MEDS: APIXABAN 5 MG TABLET. PO SCH (21:05)
[2021-11-08 03:45] VITALS: BP 148/71
[2021-11-08 04:54] LABS: BASO % 0 % (0-3); EOS # 0.1 x10^3/uL (0.0-0.7); EOS % 2 % (0-3); HEMATOCRIT 43.4 % (39.0-53.0); LYMPH # 1.7 x10^3/uL (1.0-4.8); LYMPH % 20 % (24-48); MEAN CORPUSCULAR HEMOGLOBIN 28 pg (25-35); MEAN CORPUSCULAR HGB CONC 35 g/dL (31-37); MEAN CORPUSCULAR VOLUME 82 fL (79-100); MONO # 0.6 x10^3/uL (0.0-1.1); MONO % 7 % (0-9); NEUT # 6.1 x10^3/uL (1.8-7.7); NEUT % 71 % (31-73); PLATELET COUNT 278 x10^3/uL (140-400); RED CELL DISTRIBUTION WIDTH 14.6 % (11.5-14.5); WHITE BLOOD COUNT 8.6 x10^3/uL (4.0-11.0)
[2021-11-08 05:18] LABS: CALCIUM 9.1 mg/dL (8.5-10.1); CREATININE 0.9 mg/dL (0.7-1.3); GFR 87.9; MAGNESIUM 2.1 mg/dL (1.8-2.4); POTASSIUM 3.5 mmol/L (3.5-5.1)
[2021-11-08 07:00] VITALS: BP 114/57
[2021-11-08] MEDS ORDERED: PRASUGREL 10 MG TABLET. PO SCH (08:00)
[2021-11-08] MEDS: APIXABAN 5 MG TABLET. PO SCH (08:03)
[2021-11-08] MEDS: ASPIRIN ENTERIC COATED 81 MG TABLET.DR. PO SCH (08:03)
[2021-11-08] MEDS: INSULIN LISPRO 300 UNITS/3 ML VIAL. SQ SCH ×2 (08:09→12:24)
[2021-11-08 10:37] VITALS: BP 138/65
[2021-11-08] MEDS ORDERED: PRAS10TA9 PO (12:05)
[2021-11-08] MEDS ORDERED: APIX5TAB PO (12:05)
[2021-11-08] MEDS ORDERED: ATOR40TA59 PO (12:05)
--- NOTE | 2021-11-08 16:37 | PDOC ---
PROGRESS NOTES Date of Service DATE: 11/08/21 TIME: 16:34 Subjective Subjective Patient seen and examined Objective Objective Vital Signs Date Time Temp Pulse Resp B/P (MAP) Pulse Ox O2 Delivery O2 Flow Rate FiO2 11/08/21 10:37 98.6 77 20 138/65 (89) 95 Room Air 98.6 11/07/21 15:45 2.0 Intake and Output 11/08/21 07:00 Intake Total 687.95 ml Output Total 875 ml Balance -187.05 ml Intake Oral 0 ml IV Total 687.95 ml Output Urine Total 875 ml # Voids 1 # Bowel Movements 1 Physical Exam Abdomen: Normal bowel sounds Heart: Other (Irregularly irregular) General: No acute distress Lungs: Clear to auscultation Assessment Assessment Problems Medical Problems: (1) Atrial flutter Status: Acute (2) NSTEMI (non-ST elevated myocardial infarction) Status: Acute 1. Atrial fibrillation with RVR: newly diagnosed, s/p cardioversion twice without any success with subsequent conversion to SR after starting amiodarone infusion. We will continue present medications including Eliquis. 2. NSTEMI: Catheterization yesterday with stent placement to the LAD and left circumflex. Stable overnight. Continuing on aspirin and Effient in addition to his Eliquis. Outpatient follow-up. 3. Acute combined diastolic and systolic HF: precipitated by RVR, better compensated. 2D echo showed EF 40%. Continuing present treatment. 4. HTN: home meds 5. DM-2: treat per IM Comment Review of Relevant I have reviewed the following items georgina (where applicable) has been applied. Labs Laboratory Tests Test 11/06/21 17:38 11/06/21 20:43 11/06/21 22:55 11/07/21 06:50 Glucose (Fingerstick) 174 mg/dL (70-99) 234 mg/dL (70-99) Heparin Anti-Xa Act, Unfractionated 0.21 IU/mL (0.30-0.70) 0.26 IU/mL (0.30-0.70) Sodium Level 135 mmol/L (136-145) Potassium Level 4.0 mmol/L (3.5-5.1) Chloride Level 102 mmol/L (98-107) Carbon Dioxide Level 22 mmol/L (21-32) Anion Gap 11 (6-14) Blood Urea Nitrogen 16 mg/dL (8-26) Creatinine 0.7 mg/dL (0.7-1.3) Estimated GFR (Cockcroft-Gault) 117.5 Glucose Level 202 mg/dL (70-99) Calcium Level 8.5 mg/dL (8.5-10.1) Phosphorus Level 3.1 mg/dL (2.6-4.7) Magnesium Level 1.8 mg/dL (1.8-2.4) Test 11/07/21 07:50 11/07/21 12:30 11/07/21 16:33 11/07/21 20:20 White Blood Count 10.6 x10^3/uL (4.0-11.0) Red Blood Count 5.26 x10^6/uL (4.30-5.70) Hemoglobin 14.8 g/dL (13.0-17.5) Hematocrit 42.9 % (39.0-53.0) Mean Corpuscular Volume 82 fL (79-100) Mean Corpuscular Hemoglobin 28 pg (25-35) Mean Corpuscular Hemoglobin Concent 35 g/dL (31-37) Red Cell Distribution Width 14.4 % (11.5-14.5) Platelet Count 279 x10^3/uL (140-400) Neutrophils (%) (Auto) 63 % (31-73) Lymphocytes (%) (Auto) 29 % (24-48) Monocytes (%) (Auto) 6 % (0-9) Eosinophils (%) (Auto) 2 % (0-3) Basophils (%) (Auto) 1 % (0-3) Neutrophils # (Auto) 6.7 x10^3/uL (1.8-7.7) Lymphocytes # (Auto) 3.1 x10^3/uL (1.0-4.8) Monocytes # (Auto) 0.6 x10^3/uL (0.0-1.1) Eosinophils # (Auto) 0.2 x10^3/uL (0.0-0.7) Basophils # (Auto) 0.1 x10^3/uL (0.0-0.2) Urine Collection Type Unknown Urine Color (Auto) Light yellow Urine Turbidity Clear Urine pH (Auto) 6.5 (<5.0-8.0) Urine Specific [place] 1.015 (1.000-1.030) Urine Protein (Auto) 30 mg/dL (Negative) Urine Glucose (Auto)(UA) 100 mg/dL (Negative) Urine Ketones (Auto) Negative mg/dL (Negative) Urine Blood (Auto) Negative (Negative) Urine Nitrite (Auto) Negative (Negative) Urine Bilirubin (Auto) Negative (Negative) Urine Urobilinogen (Auto) Normal mg/dL (Normal) Urine Leukocyte Esterase (Auto) Negative (Negative) Urine RBC 0 /HPF (0-2) Urine WBC Occ /HPF (0-4) Urine Squamous Epithelial Cells Occ /LPF Urine Bacteria 0 /HPF (0-FEW) Glucose (Fingerstick) 321 mg/dL (70-99) 267 mg/dL (70-99) Test 11/08/21 04:30 11/08/21 07:40 11/08/21 11:17 White Blood Count 8.6 x10^3/uL (4.0-11.0) Red Blood Count 5.30 x10^6/uL (4.30-5.70) Hemoglobin 15.0 g/dL (13.0-17.5) Hematocrit 43.4 % (39.0-53.0) Mean Corpuscular Volume 82 fL (79-100) Mean Corpuscular Hemoglobin 28 pg (25-35) Mean Corpuscular Hemoglobin Concent 35 g/dL (31-37) Red Cell Distribution Width 14.6 % (11.5-14.5) Platelet Count 278 x10^3/uL (140-400) Neutrophils (%) (Auto) 71 % (31-73) Lymphocytes (%) (Auto) 20 % (24-48) Monocytes (%) (Auto) 7 % (0-9) Eosinophils (%) (Auto) 2 % (0-3) Basophils (%) (Auto) 0 % (0-3) Neutrophils # (Auto) 6.1 x10^3/uL (1.8-7.7) Lymphocytes # (Auto) 1.7 x10^3/uL (1.0-4.8) Monocytes # (Auto) 0.6 x10^3/uL (0.0-1.1) Eosinophils # (Auto) 0.1 x10^3/uL (0.0-0.7) Basophils # (Auto) 0.0 x10^3/uL (0.0-0.2) Sodium Level 136 mmol/L (136-145) Potassium Level 3.5 mmol/L (3.5-5.1) Chloride Level 102 mmol/L (98-107) Carbon Dioxide Level 26 mmol/L (21-32) Anion Gap 8 (6-14) Blood Urea Nitrogen 14 mg/dL (8-26) Creatinine 0.9 mg/dL (0.7-1.3) Estimated GFR (Cockcroft-Gault) 87.9 Glucose Level 252 mg/dL (70-99) Calcium Level 9.1 mg/dL (8.5-10.1) Magnesium Level 2.1 mg/dL (1.8-2.4) Glucose (Fingerstick) 240 mg/dL (70-99) 282 mg/dL (70-99) Laboratory Tests Test 11/07/21 20:20 11/08/21 04:30 11/08/21 07:40 11/08/21 11:17 Glucose (Fingerstick) 267 mg/dL (70-99) 240 mg/dL (70-99) 282 mg/dL (70-99) White Blood Count 8.6 x10^3/uL (4.0-11.0) Red Blood Count 5.30 x10^6/uL (4.30-5.70) Hemoglobin 15.0 g/dL (13.0-17.5) Hematocrit 43.4 % (39.0-53.0) Mean Corpuscular Volume 82 fL (79-100) Mean Corpuscular Hemoglobin 28 pg (25-35) Mean Corpuscular Hemoglobin Concent 35 g/dL (31-37) Red Cell Distribution Width 14.6 % (11.5-14.5) Platelet Count 278 x10^3/uL (140-400) Neutrophils (%) (Auto) 71 % (31-73) Lymphocytes (%) (Auto) 20 % (24-48) Monocytes (%) (Auto) 7 % (0-9) Eosinophils (%) (Auto) 2 % (0-3) Basophils (%) (Auto) 0 % (0-3) Neutrophils # (Auto) 6.1 x10^3/uL (1.8-7.7) Lymphocytes # (Auto) 1.7 x10^3/uL (1.0-4.8) Monocytes # (Auto) 0.6 x10^3/uL (0.0-1.1) Eosinophils # (Auto) 0.1 x10^3/uL (0.0-0.7) Basophils # (Auto) 0.0 x10^3/uL (0.0-0.2) Sodium Level 136 mmol/L (136-145) Potassium Level 3.5 mmol/L (3.5-5.1) Chloride Level 102 mmol/L (98-107) Carbon Dioxide Level 26 mmol/L (21-32) Anion Gap 8 (6-14) Blood Urea Nitrogen 14 mg/dL (8-26) Creatinine 0.9 mg/dL (0.7-1.3) Estimated GFR (Cockcroft-Gault) 87.9 Glucose Level 252 mg/dL (70-99) Calcium Level 9.1 mg/dL (8.5-10.1) Magnesium Level 2.1 mg/dL (1.8-2.4) Medications Current Medications Midazolam HCl (Versed) 2 mg 1X ONCE NS Last administered on 11/06/21at 07:45; Start 11/06/21 at 07:45; Stop 11/06/21 at 08:34; Status DC Diltiazem HCl (Cardizem Iv Push) 10 mg 1X ONCE IVP Last administered on 11/06/21at 08:54; Start 11/06/21 at 08:15; Stop 11/06/21 at 08:34; Status DC Diltiazem HCl (Cardizem Iv Push) 10 mg 1X ONCE IVP Last administered on 11/06/21at 07:50; Start 11/06/21 at 08:15; Stop 11/06/21 at 08:34; Status DC Amiodarone HCl 450 mg/Dextrose 259 ml @ 0 mls/hr CONT PRN IV SEE I/O RECORD Last administered on 11/07/21at 07:31; Start 11/06/21 at 08:30; Stop 11/07/21 at 08:19; Status DC Digoxin (Lanoxin) 500 mcg 1X ONCE IV Last administered on 11/06/21at 08:57; Start 11/06/21 at 08:30; Stop 11/06/21 at 08:34; Status DC Heparin Sodium/ Dextrose 250 ml @ 12.48 mls/ hr CONT PRN IV PER PROTOCOL Last administered on 11/07/21at 01:54; Start 11/06/21 at 08:30; Stop 11/07/21 at 14:12; Status DC Heparin Sodium (Porcine) (Heparin Sodium) 2,600 unit PRN Q6HRS PRN IV FOR UFH LEVEL LESS THAN 0.2 Last administered on 11/06/21at 17:39; Start 11/06/21 at 08:30; Stop 11/07/21 at 14:37; Status DC Aspirin (Saida Aspirin) 325 mg 1X ONCE PO Last administered on 11/06/21at 12:27; Start 11/06/21 at 10:00; Stop 11/06/21 at 10:01; Status DC Sennosides (Senna) 17.2 mg PRN BID PRN PO CONSTIPATION; Start 11/06/21 at 12:00 Docusate Sodium (Colace) 100 mg PRN DAILY PRN PO HARD STOOLS; Start 11/06/21 at 12:00 Ondansetron HCl (Zofran) 4 mg PRN Q6HRS PRN IVP NAUSEA/VOMITING, 1st CHOICE; Start 11/06/21 at 12:00 Dextrose (Dextrose 50%-Water Syringe) 12.5 gm PRN Q15MIN PRN IV SEE COMMENTS; Start 11/06/21 at 12:00 Acetaminophen (Tylenol) 650 mg PRN Q4HRS PRN PO TEMP OVER 100.4F OR MILD PAIN Last administered on 11/07/21at 07:39; Start 11/06/21 at 12:00 Lorazepam (Ativan) 0.5 mg PRN Q6HRS PRN PO ANXIETY / AGITATION; Start 11/06/21 at 12:00 Lorazepam (Ativan Inj) 0.25 mg PRN Q4HRS PRN IV ANXIETY / AGITATION; Start 11/06/21 at 12:00 Oxycodone/ Acetaminophen (Percocet 5/325) 1 tab PRN Q4HRS PRN PO MODERATE PAIN; Start 11/06/21 at 12:00 Oxycodone/ Acetaminophen (Percocet 5/325) 2 tab PRN Q4HRS PRN PO SEVERE PAIN; Start 11/06/21 at 12:00 Morphine Sulfate (Morphine Sulfate) 1 mg PRN Q1HR PRN IV PAIN; Start 11/06/21 at 12:00 Morphine Sulfate (Morphine Sulfate) 2 mg PRN Q2HR PRN IVP SEVERE PAIN 7-10; Start 11/06/21 at 12:00; Stop 11/07/21 at 11:59; Status DC Prochlorperazine Edisylate (Compazine) 10 mg PRN Q6HRS PRN IV NAUSEA/VOMITING, 2nd CHOICE; Start 11/06/21 at 12:00 Diphenhydramine HCl (Benadryl) 25 mg PRN Q6HRS PRN IVP ITCHING; Start 11/06/21 at 12:00 Diphenhydramine HCl (Benadryl) 25 mg PRN Q6HRS PRN PO ITCHING; Start 11/06/21 at 12:00 Diphenhydramine HCl (Benadryl) 25 mg PRN QHS PRN PO INSOMNIA, 1st CHOICE; Start 11/06/21 at 12:00 Zolpidem Tartrate (Ambien) 2.5 mg PRN QHS PRN PO INSOMNIA, 2nd CHOICE; Start 11/06/21 at 12:00 Insulin Human Lispro (HumaLOG) 0-7 UNITS TIDWMEALS SQ Last administered on 11/08/21at 12:24; Start 11/06/21 at 12:00 Dextrose (Dextrose 50%-Water Syringe) 12.5 gm PRN Q15MIN PRN IV SEE COMMENTS; Start 11/06/21 at 12:00; Status Cancel Aspirin (Ecotrin) 81 mg DAILYWBKFT PO Last administered on 11/08/21at 08:03; Start 11/06/21 at 14:00 Atorvastatin Calcium (Lipitor) 40 mg QHS PO Last administered on 11/07/21at 21:05; Start 11/06/21 at 21:00 Hydralazine HCl (Apresoline Inj) 10 mg PRN Q4HRS PRN IVP ELEVATED BP, SEE COMMENTS Last administered on 11/07/21at 16:06; Start 11/06/21 at 18:45 Insulin Human Lispro (HumaLOG) 0-7 UNITS QHS SQ Last administered on 11/07/21at 21:10; Start 11/06/21 at 21:00 Calcium Chloride (Calcium Chloride) 1,000 mg 1X ONCE IV ; Start 11/07/21 at 01:00; Stop 11/07/21 at 01:01; Status Cancel Lidocaine HCl (Xylocaine-Mpf 1% 2ml Vial) 2 ml STK-MED ONCE .ROUTE ; Start at 07:39; Stop 11/07/21 at 07:39; Status DC Iodixanol (Visipaque 320) 100 ml STK-MED ONCE .ROUTE ; Start 11/07/21 at 07:39; Stop 11/07/21 at 07:39; Status DC Heparin Sodium/ Sodium Chloride 1,000 ml @ As Directed STK-MED ONCE .ROUTE ; Start 11/07/21 at 07:39; Stop 11/07/21 at 07:39; Status DC Fentanyl Citrate (Fentanyl 2ml Vial) 100 mcg STK-MED ONCE .ROUTE ; Start 2 at 08:20; Stop 11/07/21 at 08:21; Status DC Midazolam HCl (Versed) 5 mg STK-MED ONCE .ROUTE ; Start 11/07/21 at 08:20; Stop 11/07/21 at 08:21; Status DC Heparin Sodium (Porcine) (Heparin Sodium) 10,000 unit STK-MED ONCE .ROUTE ; Start 11/07/21 at 08:21; Stop 11/07/21 at 08:21; Status DC Verapamil HCl (Verapamil) 5 mg STK-MED ONCE .ROUTE ; Start 11/07/21 at 08:21; Stop 11/07/21 at 08:21; Status DC Nitroglycerin (Nitroglycerin) 200 mcg STK-MED ONCE .ROUTE ; Start 11/07/21 at 08:21; Stop 11/07/21 at 08:21; Status DC Bivalirudin (Angiomax) 250 mg STK-MED ONCE IVP ; Start 11/07/21 at 13:39; Stop 11/07/21 at 13:39; Status DC Nitroglycerin (Nitroglycerin) 200 mcg 1X ONCE IART Last administered on 11/07/21at 14:19; Start 11/07/21 at 13:45; Stop 11/07/21 at 13:50; Status DC Verapamil HCl (Verapamil) 2.5 mg 1X ONCE IART Last administered on 11/07/21at 14:21; Start 11/07/21 at 13:45; Stop 11/07/21 at 13:50; Status DC Heparin Sodium (Porcine) (Heparin Sodium) 2,500 unit 1X ONCE IART Last administered on 11/07/21 14:23; Start 11/07/21 at 13:45; Stop 11/07/21 at 13:50; Status DC Heparin Sodium/ Sodium Chloride (HEPARIN for ARTERIAL LINE FLUSH) 1,000 unit 1X ONCE IART Last administered on 11/07/21 14:19; Start 11/07/21 at 13:45; Stop 11/07/21 at 13:50; Status DC Midazolam HCl (Versed) 5 mg 1X ONCE IV Last administered on 11/07/21 14:22; Start 11/07/21 at 13:45; Stop 11/07/21 at 13:50; Status DC Fentanyl Citrate (Fentanyl 2ml Vial) 100 mcg 1X ONCE IV Last administered on 11/07/21 14:22; Start 11/07/21 at 13:45; Stop 11/07/21 at 13:50; Status DC Iodixanol (Visipaque 320) 100 ml 1X ONCE IART Last administered on 11/07/21at 13:45; Start 11/07/21 at 13:45; Stop 11/07/21 at 13:50; Status DC Bivalirudin (Angiomax) 250 mg 1X ONCE IVP Last administered on 11/07/21 14:20; Start 11/07/21 at 13:45; Stop 11/07/21 at 13:50; Status DC Lidocaine HCl (Xylocaine-Mpf 1% 2ml Vial) 2 ml 1X ONCE INJ Last administered on 11/07/21at 14:20; Start 11/07/21 at 13:45; Stop 11/07/21 at 13:50; Status DC Info (CONTRAST GIVEN -- Rx MONITORING) 1 each PRN DAILY PRN MC SEE COMMENTS; Start 11/07/21 at 14:00; Stop 11/09/21 at 13:59 Nitroglycerin (Nitroglycerin) 200 mcg STK-MED ONCE .ROUTE ; Start 11/07/21 at 13:58; Stop 11/07/21 at 13:58; Status DC Nitroglycerin (Nitroglycerin) 200 mcg 1X ONCE ICAR Last administered on 11/07/21at 14:20; Start 11/07/21 at 14:00; Stop 11/07/21 at 14:02; Status DC Prasugrel (Effient) 60 mg 1X ONCE PO Last administered on 11/07/21at 14:22; Start 11/07/21 at 14:15; Stop 11/07/21 at 14:16; Status DC Aspirin (Saida Aspirin) 325 mg 1X ONCE PO Last administered on 11/07/21at 14:22; Start 11/07/21 at 14:15; Stop 11/07/21 at 14:16; Status DC Furosemide (Lasix) 100 mg 1X ONCE IVP Last administered on 11/07/21at 14:23; Start 11/07/21 at 14:15; Stop 11/07/21 at 14:16; Status DC Furosemide (Lasix) 100 mg STK-MED ONCE .ROUTE ; Start 11/07/21 at 14:15; Stop 11/07/21 at 14:16; Status DC Aspirin (Saida Aspirin) 325 mg STK-MED ONCE .ROUTE ; Start 11/07/21 at 14:16; Stop 11/07/21 at 14:16; Status DC Prasugrel (Effient) 10 mg STK-MED ONCE .ROUTE ; Start 11/07/21 at 14:16; Stop 11/07/21 at 14:16; Status DC Prasugrel (Effient) 10 mg DAILYWBKFT PO Last administered on 11/08/21at 08:03; Start 11/08/21 at 08:00 Apixaban (Eliquis) 5 mg BID PO Last administered on 11/08/21at 08:03; Start 11/07/21 at 21:00 Active Scripts Active Atorvastatin Calcium 40 Mg Tablet 40 Mg PO QHS 90 Days Effient (Prasugrel Hcl) 10 Mg Tablet 10 Mg PO DAILYWBKFT 90 Days Eliquis (Apixaban) 5 Mg Tablet 5 Mg PO BID 90 Days Reported Humulin R (Insulin Regular, Human) 100 Unit/1 Ml Vial 0 IJ QIDACHS 150-200 4 UNITS 201-250 6 UNITS 251-300 8 UNITS 301-400 10 UNITS >= 401 12 UNITS AND CALL PHYSICIAN Kacie Calderon (Insulin Glargine,Hum.rec.anlog) 100 Unit/1 Ml Insuln.pen 90 Unit SQ DAILY Metformin Hcl 1,000 Mg Tablet 1,000 Mg PO BIDWMEALS Metoprolol Tartrate 50 Mg Tablet 1 Tab PO BID Cardizem Cd (Diltiazem Hcl) 360 Mg Cap.er.24h 1 Cap PO DAILY Losartan Potassium 100 Mg Tablet 100 Mg PO DAILY Flomax (Tamsulosin Hcl) 0.4 Mg Cap.er.24h 1 Cap PO DAILY Chlorthalidone (Chlorthalidone) 25 Mg Tablet 50 Mg PO DAILY Vitals/I & O Vital Sign - Last 24 Hours 11/07/21 11/07/21 11/07/21 11/07/21 17:00 17:30 18:47 20:00 Temp 98.3 99.5 98.3 99.5 Pulse 80 79 84 Resp 18 18 18 B/P (MAP) 139/78 (98) 143/67 (92) 137/63 (87) Pulse Ox 100 98 98 O2 Delivery Room Air Room Air Room Air Room Air 11/07/21 11/08/21 11/08/21 11/08/21 23:29 03:45 07:00 07:50 Temp 97.5 97.7 97.7 97.5 97.7 97.7 Pulse 72 78 74 Resp 20 18 19 B/P (MAP) 140/74 (96) 148/71 (96) 114/57 (76) Pulse Ox 96 97 95 O2 Delivery Room Air Room Air Room Air Room Air 11/08/21 10:37 Temp 98.6 98.6 Pulse 77 Resp 20 B/P (MAP) 138/65 (89) Pulse Ox 95 O2 Delivery Room Air Intake and Output 11/07/21 11/07/21 11/08/21 15:00 23:00 07:00 Intake Total 687.95 ml 0 ml Output Total 475 ml 400 ml Balance 212.95 ml -400 ml 0 ml Justifications for Admission Other Justification Chest pain CAMILO DAY MD Nov 08, 2021 16:37
--- NOTE | 2021-11-08 18:07 | NUR ---
Discharge Note: [facility] Discharge instructions and discharge home medications reviewed with [maryellen ADELAIDA.DC9] and a copy given. All questions have been answered and understanding verbalized. The following instructions and handouts were given: Post cath care. Gave full report to NORMAN Dodson and had to have her supervisor printing and stamping call about medications. Spoke with Vanna Lim RN about the availability of medications and she assured me he would have all of his medications throughout the weekend and going forward. sent the paperwork coveing car as well as giving report. Patient was also given his stent card. Discontinued lines and drains: left by wheelchair with officer to police vehicle. Patient discharged to [g ADELAIDA.DC3] with[g ADELAIDA.DC5]via [g ADELAIDA.DC4]
--- NOTE | 2021-11-10 10:33 | CARD ---
MR#: [id number] Date of Study: 11/07/2021 Ordering Physician: AUSTEN COTTRELL, Referring Physician: AUSTEN COTTRELL, Tech: CANDACE PENA APPROVED REPORT Technologist: CANDACE PENA Nurse: Gaby Maynard RN Procedure(s) performed: 1. Left heart catheterization and selective coronary angiography via right t ransradial approach 2. Successful PCI/drug-eluting stents placement to the left anterior descending and left circumflex arteries MODERATE SEDATION TIME: 73 MINS FLUORO TIME:11.8 MIN DOSE: [id number] CONTRAST: 193CC VISI NYHA: CLASS 4 INDICATION The indication(s) include : non-STEMI . CS Clinical Frailty Scale [facility] Clinical Frailty Scale: Managing Well Heart Failure Heart Failure: Yes If Yes, Newly Diagnosed: Yes If Yes, HF Type: Diastolic Systolic CASE TECHNIQUE IV conscious sedation was used throughout procedure with appropriate monitoring and was performed in the presence of a registered nurse who was an independent trained observer other than the physician p erforming the procedure. During this case, Fluoroscopy and low osmolar contrast were used for imaging . Specimen(s) Removed: No Estimated Blood loss: 15 cc's. PROCEDURE NARRATIVE After explaining the risks, benefits and alternative options, informed consent was obtained from cynthia ent. Patient was brought to the cardiac Mortuary Technician and right wrist was prepped and draped in the usual fashion after confirming a positive modified Les's test. Arterial access was obtained in the righ t radial artery and a 6 [place] sheath was inserted. 6 [place] Ke catheter was used to perform taya ective angiography of the left and right coronary arteries. LVEDP and transaortic gradients were judie sured. Left ventriculography was not performed since 2D echo this admission showed EF 40%. FINDINGS 1. Hemodynamics: Elevated left ventricular end-diastolic pressure of 48 mmHg consistent with acute c ombined systolic and diastolic heart failure. No pullback gradient across the aortic valve. 2. Coronary angiography: a. The left main coronary artery arose from the left sinus of Valsalva, gave rise to the left anteri or descending and left circumflex arteries and did not show any significant stenosis. b. The left anterior descending artery showed critical 99% stenosis in the midsegment. c. The left circumflex artery showed 80% stenosis in the midsegment. d. The right coronary artery was a dominant vessel arising from the right sinus of Valsalva that josh wed 40% stenosis in the proximal to mid segment and 30% stenosis in the midsegment. INTERVENTION The left main coronary artery was engaged with a 6 [place] XB 3.5 guide catheter. The stenosis in the left circumflex artery was crossed with a 0.014 inch [employer] guidewire. This was predilated with a 2.5 x 15 mm Euphora balloon following which this was successfully treated with a 2.75 x 16 mm [employer] Promus Elite drug-eluting stent. Subsequently, the left anterior descending artery stenosis was crossed with the same [place] guidewire. This was predilated with 2.5 x 15 mm Euphora balloon following which it was successfully treated with 2.5 x 32 mm [employer] Promus Elite drug-eluting stent. Follow-up angiography showed resolution of both the lesions to 0% with MARCELINO-3 di stal flow. Patient tolerated the procedure well. Hemostasis was achieved using TR band. There were no immediate complications. MARCELINO Flow MARCELINO Flow (Pre-Intervention): MARCELINO-2 MARCELINO Flow (Post-Intervention): MARCELINO-3 MARCELINO Flow MARCELINO Flow (Pre-Intervention): MARCELINO-1 MARCELINO Flow (Post-Intervention): MARCELINO-3 Conclusion 1. Severe two-vessel coronary artery disease involving the left anterior descending and left circumf manny arteries as described above 2. Successful PCI/drug-eluting stents placement to left anterior descending and left circumflex jennifer jamal 3. Significantly elevated LVEDP consistent with acute combined systolic and diastolic heart failure Recommendations 1. Aspirin 81 mg daily (patient on triple therapy) 2. Plavix 75 mg daily 3. Cardiovascular risk factor modification Signed by : Mack Rodriguez, Electronically Approved : 11/10/2021 10:32:43
== END 2021-11-08 14:25 | DRG 246 ==
LOC: ER 07:44 → EEVIPCON 07:44 → 1 WEST ICU 08:48 → 6 SOUTH 11-07 17:29
PROVIDERS: ADMIT Internal Medicine; ATTEND Internal Medicine
PROC: 4A023N7 Measurement of Cardiac Sampling and Pressure, Left Heart, Percutaneous Approach (ICD-10-PCS; principal; 2021-11-07)
PROC: 027135Z Dilation of Coronary Artery, Two Arteries with Two Drug-eluting Intraluminal Devices, Percutaneous Approach (ICD-10-PCS; 2021-11-07)
PROC: B211YZZ Fluoroscopy of Multiple Coronary Arteries using Other Contrast (ICD-10-PCS; 2021-11-07)
DX: I21.4 Non-ST elevation (NSTEMI) myocardial infarction (principal); I50.43 Acute on chronic combined systolic (congestive) and diastolic (congestive) heart failure; I47.1 Supraventricular tachycardia; I48.92 Unspecified atrial flutter; E11.9 Type 2 diabetes mellitus without complications; E66.01 Morbid (severe) obesity due to excess calories; E78.5 Hyperlipidemia, unspecified; I11.0 Hypertensive heart disease with heart failure; Z20.822 Contact with and (suspected) exposure to COVID-19; I48.91 Unspecified atrial fibrillation; Z68.36 Body mass index [BMI] 36.0-36.9, adult; Z79.4 Long term (current) use of insulin; Z82.49 Family history of ischemic heart disease and other diseases of the circulatory system; Z83.3 Family history of diabetes mellitus
CPT/HCPCS: 36415; 71045; 80048; 80053; 80061; 81001; 82962; 83735; 83880; 84100; 84443; 84484; 85025; 85379; 85520; 85610; 87426; 92928; 93005; 93306; 93458; 96374; 96375; 96376; 99152; 99153; C1725; C1769; C1894; J0282; J0360; J0583; J1160; J1644; J1815; J1940; J2250; J3010; J3490; J7060; Q9967; 99291-25; C1874; C8929; G0378